=== PATIENT | male | born 1985 | race Two or more races ===

== ENCOUNTER 2019-03-04 17:19 | Emergency (ER) | payer SELFPAY ==
[~2019-03-04] VITALS: Ht 172.7 cm; Wt 90.0 kg
[2019-03-04] MEDS ORDERED: SODIUM CHLORIDE 0.9% 1,000 ML IV ONE ×2 (17:32→17:45)
[2019-03-04] MEDS ORDERED: ADENOSINE 3 MG/ML 2ML VIAL IV ONE ×2 (17:45)
[2019-03-04] MEDS ORDERED: LORAZEPAM 2MG/ML CPJ IV ONE (17:45)
[2019-03-04 18:23] LABS: BASOPHILS % 0.2 % (0.0-2.0); EOSINOPHILS % 0.7 % (0.0-5.0); HEMATOCRIT. 48.8 % (42.0-52.0); HEMOGLOBIN. 16.3 g/dL (14.0-18.0); LYMPHOCYTES % 18.3 % (20.0-50.0); MEAN CORPUSCULAR HEMOGLOBIN 29.9 pg (28.0-32.0); MEAN CORPUSCULAR VOLUME 89.7 fL (80.0-94.0); MONOCYTES % 2.7 % (2.0-8.0); NEUTROPHILS % 78.1 % (40.0-76.0); PLATELET 270 x1000/uL (130-400); RED BLOOD CELL COUNT 5.45 mill/uL (4.7-6.1); RED CELL DISTRIBUTION WIDTH 13.1 % (11.6-14.6)
[2019-03-04 18:30] LABS: CHLORIDE 106 mEq/L (98-107)
[2019-03-04 18:36] LABS: ETHANOL BLOOD < 10 mg/dL
[2019-03-04 18:41] LABS: T4 FREE 0.99 ng/dL (0.76-1.46)
[2019-03-04] MEDS ORDERED: MORPHINE SULFATE 4 MG/ML CPJ (NOT FOR IM USE) IV ONE (19:15)
[2019-03-04] MEDS ORDERED: ONDANSETRON HCL 4MG/2ML INJ IV ONE (19:15)
[2019-03-04] MEDS ORDERED: CHLORDIAZEPOXIDE 25MG CAPSULE PO ONE (20:45)
[2019-03-04] MEDS ORDERED: HYDROCODONE/ACETAMINOPHEN 5/325MG TABLET PO ONE (20:45)
[2019-03-04] MEDS ORDERED: CHLORDIAZEPOXIDE 25MG CAPSULE PO NR (21:30)
[2019-03-04 21:53] VITALS: BP 113/68
== END 2019-03-04 21:55 | disposition home or self-care (01) ==
LOC: ER 17:19
DX: M54.5 Low back pain (principal); R00.0 Tachycardia, unspecified; R03.0 Elevated blood-pressure reading, without diagnosis of hypertension
CPT/HCPCS: 36415; 71045; 72131; 80053; 80320; 83690; 83880; 84439; 84443; 84481; 84484; 85025; 93005; 96361; 96374; 96375; 99284; J0153; J2270; J2405; J7030; G0480